=== PATIENT | female | born 1980 | race Caucasian/White ===

== ENCOUNTER 2018-08-08 07:42 | Observation (INO) | payer OTHER, SELFPAY ==
[2018-08-01 12:18] LABS: International Normalized Ratio 1.1; Prothrombin Time (Protime)PT. 13.7 SECONDS (11.7-14.9)
[2018-08-01 12:19] LABS: Partial Thromboplast Time 33.7 Seconds (24.1-36.2)
[2018-08-01 12:27] LABS: Hematocrit 39.6 % (37-47); Hemoglobin 13.4 g/dl (12.0-15.0); Mean Corp Hgb Conc 33.8 g/gl (32-36); Mean Corpuscular Hgb 30.7 pg (27.0-32.0); Mean Corpuscular Volume 90.6 fL (81-99); Mean Platelet Vol. 10.4 fl (6.2-12.0); Platelet Count 251 K/mm3 (150-450); RBC Distribution Width CV 12.4 % (11.6-14.6); RBC Distribution Width SD 40.7 fl (35.1-43.9); Red Blood Count 4.37 M/mm3 (4.2-5.4); White Blood Count 6.6 K/mm3 (4.4-11.0)
[2018-08-01 12:37] LABS: Scan Indicated on CBC? Y/N NO
[2018-08-01 12:53] LABS: Pregnancy, Serum, hCG Quali. NEGATIVE Negative (0-9 Nonpreg)
[2018-08-08] VITALS (10 sets, daily range): BP systolic 116–143; BP diastolic 75–95; PULSE 78–103; RESP 12–18; TEMP 36.6–37.9; O2SAT 95–100; BMI 28.1
[2018-08-08 06:09] LABS: Internal QC Validated? YES +Cl - CLEAR BKGD
[2018-08-08 06:10] LABS: Pregnancy, Urine Negative Negative
[2018-08-08] MEDS: Gabapentin 600 MG Tablet PO (06:39)
[2018-08-08] MEDS: Acetaminophen 500 MG Tablet 1000 MG PO ×2 (06:39→22:11)
[2018-08-08 06:45] LABS: Bedside Glucose 103 mg/dL (70-110)
[2018-08-08] MEDS: Bupivacaine 0.25% 30 ML Vial (06:49)
--- NOTE | 2018-08-08 07:30 | HYST_PTH ---
PATIENT: MOHAN LAGUNAS LOC: MS2 U#:[id number] AGE/SX: 38/F ROOM: [facility] [place] RE08/08/[address]: Dr. Cliff Solis MD : [id number] BED: 1 DIS: 08/09/2018 SPEC #: [id number] RECD: 08/08/18 11:52 STATUS: NATTY REErin #: [id number] MAXIM: 08/08/18 07:[address]: Cliff Solis DEPT: SURGICAL PATHOLOGY RECD BY: Lucy Dominique ENTERED: 08/08/18 12:18 SP TYPE: HYSTERECT OTHR DR: Dr. Toro Remy DO Tissues: A - Fallopian tube B - Fallopian tube C - Uterus, NOS Procedures: Surgery Specimen Level IV Surgery Specimen Level V HEADER OPERATION: ERAS-hysterectomy, lap assisted vaginal salpingectomy PRE-OP DIAGNOSIS: Dysmenorrhea and pelvic pain TISSUE SUBMITTED: A. Left distal tube, B. Right distal tube, C. Uterus and cervix MICROSCOPIC DIAGNOSIS A. Left distal fallopian tube: Fallopian tube including fimbrial end, no pathologic diagnosis. B. Right distal fallopian tube: Fallopian tube including fimbrial end, no pathologic diagnosis. C. Uterus, cervix and proximal portion of bilateral fallopian tubes: Cervix - chronic cystic cervicitis. Endometrium - extensive changes consistent with previous endometrial ablation. - Focal area of proliferative endometrium. Myometrium - adenomyosis. Proximal portion of bilateral fallopian tubes - hematosalpinx. SJ:joss 08/09/18 MICROSCOPIC DESCRIPTION Slides are reviewed. GROSS DESCRIPTION A - Received in fixative is one container labeled with the patient's name and designated left distal tube. The specimen consists of a fallopian tube including fimbrial end measuring 5 cm in length and 0.5 cm in diameter. Sections do not reveal any mass lesion. Chair Car Driver sections are submitted in one cassette. B - Received in fixative is one container labeled with the patient's name and designated right distal tube. The specimen consists of a fallopian tube including fimbrial end measuring 4.5 cm in length and 0.5 cm in diameter. Sections do not reveal any mass lesion. Chair Car Driver sections are submitted in one cassette. A metallic Filshie clip is also noted in the container which appears intact. C - Received in fixative is one container labeled with the patient's name and designated uterus and cervix. The specimen consists of a hysterectomy specimen consisting of uterus with cervix and attached proximal portion of bilateral fallopian tubes weighing 98 gm and measuring 8 x 6 x 4 cm. A central depression is noted at the fundus. The proximal portion of right fallopian tube measures 1.5 cm in length and 0.8 cm in diameter and proximal portion of left fallopian tube measures 2 cm in length and 0.7 cm in diameter. A Filshie clip is also noted at the end of the left fallopian tube. The serosal surface is mckeon, glistening. The ectocervical mucosa is unremarkable. The external os is oval and patulous in contour. The endocervical canal measures 2.5 cm in length and the endocervical mucosa is mckeon, glistening and unremarkable. The endometrial cavity is markedly narrow and shows fibrosis and measures 3 cm in length and 0.8 cm in width. The fundic portion of the uterine cavity shows two cysts filled with bloody fluid. The endometrium measures up to 0.1 cm in thickness. The cysts measure 1.5 to 2 cm in greatest dimension. Sections of the myometrial wall do not reveal any mass lesion. The uterine wall measures up to 2 cm in thickness. Sections of the proximal portion of the right fallopian tube do not reveal any mass lesion. The lumen is pinpoint and filled with bloody fluid. Sections of the proximal portion of the left fallopian tube also reveal dilated lumen up to 0.5 cm in diameter and filled with bloody fluid. Chair Car Driver sections are submitted in 11 cassettes as follows: 1 - anterior cervix, 2 - posterior cervix, 3 & 4 - anterior uterine wall, 5 & 6 - posterior uterine wall, 7 - cystic portion of endomyometrial cavity, anterior uterine wall, 8 & 9 - cystic portion of endomyometrial cavity, posterior uterine wall, 10 - proximal portion of right fallopian tube, entirely submitted, 11 - proximal portion of left fallopian tube, entirely submitted. / JEANETTE:joss 08/08/18 TC:5 CPT: 30467, 62550 x2
--- NOTE | 2018-08-08 07:52 | DCINST_ITS ---
Discharge Diet: No Restrictions Discharge Activity: Return to Normal Activity, May Not Drive, May not drive while taking narcotic pain medications., May Shower Return to work on:: 09/07/18 May shower in (days): 0 May resume sexual activity in: 6 weeks Call your doctor if your incision/area has: Sudden Increased Bleeding, Increased Pain/ Swelling, Increased Redness, Foul Smelling Discharge, Swelling at the incision site Call your doctor if you observe: Fever of 101 or Higher, Inability to urinate, Inability to have a bowel movement, Using more than one pad per hour, Shortness of breath, Chest pain, Calf discomfort, Uncontrolled pain Remove Dressing in (days):: 2 Cleanse incision/area with: Soap & Water Allergies/Adverse Reactions: Allergies Sulfa (Sulfonamide Antibiotics) Allergy (Verified 08/08/18 06:17) Shortness of breath acetaminophen [From Darvocet-N] Adverse Reaction (Verified 08/08/18 06:17) Itching hydrocodone [From [place]] Adverse Reaction (Verified 08/08/18 06:17) Nausea oxycodone [From Percocet] Adverse Reaction (Verified 08/08/18 06:17) Nausea/Vom/Diarrhea propoxyphene [From Darvocet-N] Adverse Reaction (Verified 08/08/18 06:17) Itching Medications to take at Discharge Esomeprazole Mag Trihydrate [Nexium] 20 mg PO DAILY 07/31/18 Ibuprofen 600 mg PO 4X/DAY #30 tab 08/08/18 Oxycodone [Oxyir] 5 mg PO Q4H PRN PRN 7 Days #20 tab 08/08/18 The following prescriptions were given: Oxycodone [Oxyir] 5 mg PO Q4H PRN PRN 7 Days #20 tab PRN Reason: Pain Ibuprofen 600 mg PO 4X/DAY #30 tab Primary Care Physician: Toro Remy [Primary Care Provider] - Test Results: Test results from this visit will be discussed in further detail at your follow- up appointment, if applicable. Please Follow Up With: Cliff Solis MD When: one week Proposed Discharge Date: 08/09/18
--- NOTE | 2018-08-08 07:56 | OP.PCM_ITS ---
Report of Operation Date of Procedure: 08/08/18 Pre-Operative Diagnosis: Dysmenorrhea, Pelvic Pain, Post Endometrial Ablation Syndrome Post-Operative Diagnosis: Same Surgery/Procedure Performed:: LAVH, Bilateral Salpingectomy Description of Surgical Findings:: Normal appearing uterus, ovaries, and cervix. Both fallopian tubes s/p Filshie clip occlusion with right clip located in anterior cul de sac. Normal appearing liver, stomach, and gallbladder. surface to air weapons officer: Katia Leigh Type of Anesthesia:: General Anesthesiologist: Jayden Grady Special Medications: none Specimen's removed: Uterus, cervix, and fallopian tubes Drains: Zamudio Estimated Blood Loss (mL): 50cc Fluids Replaced: 1000cc LR Description of Procedure: Leora was taken to the OR with IV running. She was given two grams of Cefotetan IV prior to the procedure. SCDs were in place throughout the case. General anesthesia was introduced without complication. She was prepped and draped in the dorsal lithotomy position. A zamudio catheter was placed. A Zumi uterine manipulator was placed. Attention was then directed to the abdomen., A 5mm vertical incision was made in the lower base of the umbilicus. The underlying subcutaneous tissue was dissected down to the level of the fascia using blunt dissection with a Laura clamp. The abdominal wall was then elevated and a Veress needle was placed through the umbilical defect into the abdomen. The abdomen was then inflated with CO2 gas to 15 Torr. The Veress needle was removed and replaced with a 5mm laparoscopic trocar and sleeve. The trocar was removed and replaced with a laparoscope. Findings were as mentioned above. All dissections were performed with the ligasure device. Attention was first directed to the left fallopian tube which was grasped at the fimbriated end, elevated and the mesosalpinx was dissected close to the tube from the fimbriated end to the cornua of the uterus. The left uteroovarian ligament was then cauterized and cut. The left round ligament was then cauterized and cut. The broad ligament was then dissected down tot he level of the cervicouterine juction close to the uterus. The anterior and posterior leaves were then bluntly. The left uterine artery was cauterized and cut. The vesicouterine peritoneum was then undermined bluntly and a bladder falp was created. The paracervical tissue on the left was dissected close to the cervix to the level of the uterosacral ligaments. The same dissection was performed on the right side. Hemostasis was excellent in the pelvis. Gas was evacuated from the abdomen and attention was directed to the vagina. The uterine manipulator was removed. The cervix was then grasped with two single toothed tenacula for traction. The cervicovaginal epithelium was then injected superficially with a dilute pitressin solution. The Bovie cautery was then used to circumfrentially cut the vaginal mucosa at the cervicovaginal junction. The vaginal mucosa was pushed superiorly. The vesicovaginal peritoneum was then identified and entered sharply. The rectovaginal peritoneum was entered sharply. A long weighted speculum was placed through the posterior vaginal defect. The uterosacral ligaments on each side were grasped with Napoleon clamps cut and suture ligated. These ties were held for future incorporation in the vaginal cuff angles. The remaining paracervical tissue was grasped with Napoleon clamps cut and suture ligated. The specimen was then removed. The vaginal cuff angles were then closed with 0- Vicryl sutures and the previously held uterosacral ligament ties were incorporated into these ties on the respective sides. The vaginal cuff was then closed with a series of interrupted sutures of 0-Vicryl. Attention was then directed to the abdomen which was reinflated with CO2 gas. All pedicles were inspected and found to be hemostatic. The lateral ports were removed under direct visualization with the laparoscope. Gas was evacuated from the abdomen and the umbilical port was removed. The skin incisions were closed with 4-0 Monocryl suture. The skin incision sites were injected with 0.25% Marcaine. Sponge, lap, instrument, and needle counts were correct. She was reversed from anesthesia and taken to the recovery room in stable condition. Grafts/Implants Used: none - Complications none - Admit VTE Documentation VTE Present on Admission: No VTE Mechan Device Prophylaxis: SCD's VTE Pharm Prophylaxis ordered?: No
[2018-08-08] MEDS: Lidocaine/D5W 2,000 MG/250 ML IV.SOLN 2000 MG ×2 (08:05)
[2018-08-08] MEDS: Ketorolac 30 MG/ML Syringe IV ×3 (09:03→20:53)
[2018-08-08] MEDS: Dextrose 5%-Lactated Ringers 1,000 ML 125 ML IV ×2 (13:21→21:40)
[2018-08-08] MEDS: traMADol 50 MG Tablet 100 MG PO ×2 (13:30→23:29)
[2018-08-08] MEDS: Cefazolin 1 GM/50 ML BAG IV ×2 (15:28→23:29)
[2018-08-08] MEDS: Acetaminophen/Butalbital/Caffe 1 Tablet 2 TABLET PO (18:38)
[2018-08-09 03:15] VITALS: BP 108/62; PULSE 77; RESP 14; TEMP 37.2; O2SAT 97
[2018-08-09] MEDS: Ketorolac 30 MG/ML Syringe IV (03:19)
[2018-08-09 06:14] LABS: Hematocrit 36.1 % (37-47); Hemoglobin 12.1 g/dl (12.0-15.0); Mean Corp Hgb Conc 33.5 g/gl (32-36); Mean Corpuscular Hgb 30.6 pg (27.0-32.0); Mean Corpuscular Volume 91.4 fL (81-99); Mean Platelet Vol. 10.4 fl (6.2-12.0); Platelet Count 267 K/mm3 (150-450); RBC Distribution Width CV 12.3 % (11.6-14.6); RBC Distribution Width SD 40.2 fl (35.1-43.9); Red Blood Count 3.95 M/mm3 (4.2-5.4); White Blood Count 11.9 K/mm3 (4.4-11.0)
[2018-08-09 06:36] LABS: Scan Indicated on CBC? Y/N NO
[2018-08-09] MEDS: traMADol 50 MG Tablet 100 MG PO (07:13)
--- NOTE | 2018-08-09 07:54 | PCM.PN.OB ---
Subjective: Some abdominal soreness. Voiding, tolerating PO. Scant vaginal spotting. Objective: Afeb VSS Hgb appropriate. - Physical Exam General: Alert, Oriented x3, Cooperative, No apparent distress Lungs: Clear to auscultation, Normal air movement Cardiovascular: Regular rate, Regular Rhythm Abdomen: Soft, Non Tender, Non-Distended, - - Incision dressings dry, no erythema Extremities: No edema Skin: No rashes Neurological: Neuro grossly intact Psych/Mental Status: Normal Affect Vital Signs Temp Pulse Resp BP Pulse Ox 99.0 F 77 14 108/62 97 08/09/18 03:15 08/09/18 03:15 08/09/18 03:15 08/09/18 03:15 08/09/18 03:15 Oxygen Flow Rate (L/min) 6 Oxygen Delivery Method Room Air Weight: 169 lb 1.513 oz Body Mass Index (BMI) 28.1 Intake and Output for Last 24 Hours 08/07/18 08/08/18 08/09/18 23:59 23:59 23:59 Intake Total 2693 / 2693 1324 / 1324 Output Total 2290 / 2290 500 / 500 Balance 403 / 403 824 / 824 Laboratory Tests Past 24 Hrs 08/09/18 05:10 WBC 11.9 H RBC 3.95 L Hgb 12.1 Hct 36.1 L MCV 91.4 MCH 30.6 MCHC 33.5 RDW 12.3 RDW Differential 40.2 Plt Count 267 MPV 10.4 Medical Necessity - Tobacco Use Smoking Status: Former smoker Tobacco Use: Non-smoker Assessment/Plan Doing well on POD#1 s/p LAVH and bilateral salpingectomy. Cleared for discharge home today. Home going instructions and warnings given.
--- NOTE | 2018-08-09 07:56 | PCM.DC.SUM ---
Discharge Date and Diagnosis Date of Admission: 08/08/18 Date of Discharge: 08/09/18 - Primary Discharge Diagnosis S/P LAVH, bilateral salpingectomy Hospital Course and Treatment Operations: - - LAVH, bilateral salpingectomy Summary of Care Provided: The patient is a 38 year old F [admitted for LAVH bilateral salpingectomy. Surgery performed without complication. Discharged home on POD #1.] - Physical Exam Vital Signs Temp Pulse Resp BP Pulse Ox 99.0 F 77 14 108/62 97 08/09/18 03:15 08/09/18 03:15 08/09/18 03:15 08/09/18 03:15 08/09/18 03:15 Oxygen Flow Rate (L/min) 6 Oxygen Delivery Method Room Air Weight: 169 lb 1.513 oz Body Mass Index (BMI) 28.1 Intake and Output for Last 24 Hours 08/07/18 08/08/18 08/09/18 23:59 23:59 23:59 Intake Total 2693 / 2693 1324 / 1324 Output Total 2290 / 2290 500 / 500 Balance 403 / 403 824 / 824 Laboratory Tests Past 24 Hrs 08/09/18 05:10 WBC 11.9 H RBC 3.95 L Hgb 12.1 Hct 36.1 L MCV 91.4 MCH 30.6 MCHC 33.5 RDW 12.3 RDW Differential 40.2 Plt Count 267 MPV 10.4 Discharge Diet: No Restrictions Discharge Activity: Return to Normal Activity, May Not Drive, May not drive while taking narcotic pain medications., May Shower Return to work on:: 09/07/18 May shower in (days): 0 May resume sexual activity in: 6 weeks Call your doctor if your incision/area has: Sudden Increased Bleeding, Increased Pain/ Swelling, Increased Redness, Foul Smelling Discharge, Swelling at the incision site Call your doctor if you observe: Fever of 101 or Higher, Inability to urinate, Inability to have a bowel movement, Using more than one pad per hour, Shortness of breath, Chest pain, Calf discomfort, Uncontrolled pain Remove Dressing in (days):: 2 Cleanse incision/area with: Soap & Water Home Medications: Medications to take at Discharge Esomeprazole Mag Trihydrate [Nexium] 20 mg PO DAILY 07/31/18 Ibuprofen 600 mg PO 4X/DAY #30 tab 08/08/18 Oxycodone [Oxyir] 5 mg PO Q4H PRN PRN 7 Days #20 tab 08/08/18 traMADol [Ultram] 50 mg PO Q4H PRN PRN 7 Days #28 tab 08/08/18 Following Prescrptions Were Given to Patient: Oxycodone [Oxyir] 5 mg PO Q4H PRN PRN 7 Days #20 tab PRN Reason: Pain traMADol [Ultram] 50 mg PO Q4H PRN PRN 7 Days #28 tab PRN Reason: Moderate Pain (4-5/10) Ibuprofen 600 mg PO 4X/DAY #30 tab Primary Care Physician: Toro Remy [Primary Care Provider] - Please Follow Up With: Cliff Solis MD When: one week Disposition: Home Minutes spent on discharge:: 15 Patient Condition:: Good Medical Necessity - Tobacco Use Smoking Status: Former smoker Tobacco Use: Non-smoker Meaningful Use Info Meaningful Use Diagnoses (Choose all that apply): None applicable
[2018-08-09 08:50] VITALS: BP 135/89; PULSE 84; RESP 18; TEMP 37.7; O2SAT 97
--- OUTSIDE RECORDS SUMMARY | 2018-10-03 11:08 | XMS RPT_ITS ---
:1980 Author Organization [facility] Care Team Providers Name Role Phone Cliff Solis Attending Unavailable Seals, Cliff Referring Unavailable TORO REMY Primary Care Unavailable Seals, Cliff Admitting Unavailable Seals, Cliff Attending Unavailable PROBLEMS PROBLEMS DATE TYPE CONDITION / CODE ATTENDING STATUS SOURCE 08/15/2018 Unknown R30.0 - Dysuria / SealsCliff Active [place] R30.0(ICD-10) [facility]ly [facility] Hospital Repository 08/09/2018 Unknown G89.18 - Other acute SealsCliff Active [place] postprocedural pain [facility]ly [facility] / G89.18(ICD-10) Hospital Repository PROCEDURES PROCEDURES No Procedure Records FoundRESULTS RESULTS Observed: 08/15/2018 Status: F Source: BRACEY CULTURE, URINE 10:10 AM [facility] REPOSITORY Urine Culture Below infection level. ORGANISM 1: Presumptive E. coli Trosper Count <1000 Performed By: #### M100.0650 #### [facility] [address] [place] [address]. [place], [address] DISCHARGE SUMMARY Observed: 08/09/2018 Status: F Source: RONNIE 7:58 AM [facility] REPOSITORY [facility] Medical Records Department [address] [place] [address] Discharge Summary 08/09/18 0756 MR#: [id number] Acct: [id number] Name: LEORA LAGUNAS Rep #: [id number] : 1980 38 From: Cliff Solis MD PCP: BONIFACIO Ryan Status: ADM DAVID Y Location: [place] [address] Discharge Date and Diagnosis Date of Admission: 08/08/18 Date of Discharge: 08/09/18 - Primary Discharge Diagnosis S/P LAVH, bilateral salpingectomy Hospital Course and Treatment Operations: - - LAVH, bilateral salpingectomy Summary of Care Provided: The patient is a 38 year old F [admitted for LAVH bilateral salpingectomy. Surgery performed without complication. Discharged home on POD #1.] - Physical Exam Vital Signs Temp Pulse Resp BP Pulse Ox 99.0 F 77 14 108/62 97 08/09/18 03:15 08/09/18 03:15 08/09/18 03:15 08/09/18 03:15 08/09/18 03:15 Oxygen Flow Rate (L/min) 6 Oxygen Delivery Method Room Air Weight: 169 lb 1.513 oz Body Mass Index (BMI) 28.1 Intake and Output for Last 24 Hours Intake Total 2693 / 2693 1324 / 1324 Output Total 2290 / 2290 500 / 500 Balance 403 / 403 824 / 824 Laboratory Tests Past 24 Hrs WBC 11.9 H RBC 3.95 L Hgb 12.1 Hct 36.1 L MCV 91.4 MCH 30.6 MCHC 33.5 RDW 12.3 RDW Differential 40.2 Plt Count 267 MPV 10.4 Discharge Diet: No Restrictions Discharge Activity: Return to Normal Activity, May Not Drive, May not drive while taking narcotic pain medications., May Shower Return to work on:: 09/07/18 May shower in (days): 0 May resume sexual activity in: 6 weeks Call your doctor if your incision/area has: Sudden Increased Bleeding, Increased Pain/ Swelling, Increased Redness, Foul Smelling Discharge, Swelling at the incision site Call your doctor if you observe: Fever of 101 or Higher, Inability to urinate, Inability to have a bowel movement, Using more than one pad per hour, Shortness of breath, Chest pain, Calf discomfort, Uncontrolled pain Remove Dressing in (days):: 2 Cleanse incision/area with: Soap AND Water Home Medications: Medications to take at Discharge Esomeprazole Mag Trihydrate [Nexium] 20 mg PO DAILY 07/31/18 Ibuprofen 600 mg PO 4X/DAY #30 tab 08/08/18 Oxycodone [Oxyir] 5 mg PO Q4H PRN PRN 7 Days #20 tab 08/08/18 traMADol [Ultram] 50 mg PO Q4H PRN PRN 7 Days #28 tab 08/08/18 Following Prescrptions Were Given to Patient: Oxycodone [Oxyir] 5 mg PO Q4H PRN PRN 7 Days #20 tab PRN Reason: Pain traMADol [Ultram] 50 mg PO Q4H PRN PRN 7 Days #28 tab PRN Reason: Moderate Pain (4-5/10) Ibuprofen 600 mg PO 4X/DAY #30 tab Primary Care Physician: Toro Remy [Primary Care Provider] - Please Follow Up With: Cliff Solis MD When: one week Disposition: Home Minutes spent on discharge:: 15 Patient Condition:: Good Medical Necessity - Tobacco Use Smoking Status: Former smoker Tobacco Use: Non-smoker Meaningful Use Info Meaningful Use Diagnoses (Choose all that apply): None applicable 08/09/18 0758 <Electronically signed by Cliff Solis MD> Date Cliff Solis MD Cosigner Signature (if applicable): Date CC: BONIFACIO Remy; Cliff Solis MD Signed CBC-COMPLETE BLOOD CNT Collected: 08/09/2018 Status: F Source: RONNIE NO DIFF 5:10 AM [facility] REPOSITORY TYPE CODE TESTS RESULT OUT OF RANGE REFERENCE UNITS LAB L100.1000 4.4-11.0 K/mm3 High WBC 11.9 LAB L100.1200 4.2-5.4 M/mm3 Low RBC 3.95 LAB L100.1300 12.0-15.0 g/dl Normal HGB 12.1 LAB L100.1400 37-47 % Low HCT 36.1 LAB L100.1500 81-99 fL Normal MCV 91.4 LAB L100.1600 27.0-32.0 pg Normal MCH 30.6 LAB L100.1700 32-36 g/gl Normal MCHC 33.5 LAB L100.1810 11.6-14.6 % Normal RDW CV 12.3 LAB L100.1820 35.1-43.9 fl Normal RDW SD 40.2 LAB L100.1900 150-450 K/mm3 Normal PLT 267 LAB L100.2000 6.2-12.0 fl Normal MPV 10.4 Performed By: #### L100.0500 #### [facility] [address] [facility] [place], [address] OPERATIVE REPORT Observed: 08/08/2018 Status: F Source: BRACEY 5:13 PM [facility] REPOSITORY [facility] Medical Records Department [address] [place] [address] Operative Report 08/08/18 0752 MR#: [id number] Acct: [id number] Name: LEORA LAGUNAS Rep #: [id number] : 1980 38 From: Cliff Solis MD PCP: BONIFACIO Ryan Status: ADM DAVID Y Location: [place] [address] Report of Operation Date of Procedure: 08/08/18 Pre-Operative Diagnosis: Dysmenorrhea, Pelvic Pain, Post Endometrial Ablation Syndrome Post-Operative Diagnosis: Same Surgery/Procedure Performed:: LAVH, Bilateral Salpingectomy Description of Surgical Findings:: Normal appearing uterus, ovaries, and cervix. Both fallopian tubes s/p Filshie clip occlusion with right clip located in anterior cul de sac. Normal appearing liver, stomach, and gallbladder. computer engineering professor: Katia Leigh Type of Anesthesia:: General Anesthesiologist: Jayden Grady Special Medications: none Specimen's removed: Uterus, cervix, and fallopian tubes Drains: Zamudio Estimated Blood Loss (mL): 50cc Fluids Replaced: 1000cc LR Description of Procedure: Leora was taken to the OR with IV running. She was given two grams of Cefotetan IV prior to the procedure. SCDs were in place throughout the case. General anesthesia was introduced without complication. She was prepped and draped in the dorsal lithotomy position. A zamudio catheter was placed. A Zumi uterine manipulator was placed. Attention was then directed to the abdomen., A 5mm vertical incision was made in the lower base of the umbilicus. The underlying subcutaneous tissue was dissected down to the level of the fascia using blunt dissection with a Laura clamp. The abdominal wall was then elevated and a Veress needle was placed through the umbilical defect into the abdomen. The abdomen was then inflated with CO2 gas to 15 Torr. The Veress needle was removed and replaced with a 5mm laparoscopic trocar and sleeve. The trocar was removed and replaced with a laparoscope. Findings were as mentioned above. All dissections were performed with the ligasure device. Attention was first directed to the left fallopian tube which was grasped at the fimbriated end, elevated and the mesosalpinx was dissected close to the tube from the fimbriated end to the cornua of the uterus. The left uteroovarian ligament was then cauterized and cut. The left round ligament was then cauterized and cut. The broad ligament was then dissected down tot he level of the cervicouterine juction close to the uterus. The anterior and posterior leaves were then bluntly. The left uterine artery was cauterized and cut. The vesicouterine peritoneum was then undermined bluntly and a bladder falp was created. The paracervical tissue on the left was dissected close to the cervix to the level of the uterosacral ligaments. The same dissection was performed on the right side. Hemostasis was excellent in the pelvis. Gas was evacuated from the abdomen and attention was directed to the vagina. The uterine manipulator was removed. The cervix was then grasped with two single toothed tenacula for traction. The cervicovaginal epithelium was then injected superficially with a dilute pitressin solution. The Bovie cautery was then used to circumfrentially cut the vaginal mucosa at the cervicovaginal junction. The vaginal mucosa was pushed superiorly. The vesicovaginal peritoneum was then identified and entered sharply. The rectovaginal peritoneum was entered sharply. A long weighted speculum was placed through the posterior vaginal defect. The uterosacral ligaments on each side were grasped with Napoleon clamps cut and suture ligated. These ties were held for future incorporation in the vaginal cuff angles. The remaining paracervical tissue was grasped with Napoleon clamps cut and suture ligated. The specimen was then removed. The vaginal cuff angles were then closed with 0- Vicryl sutures and the previously held uterosacral ligament ties were incorporated into these ties on the respective sides. The vaginal cuff was then closed with a series of interrupted sutures of 0-Vicryl. Attention was then directed to the abdomen which was reinflated with CO2 gas. All pedicles were inspected and found to be hemostatic. The lateral ports were removed under direct visualization with the laparoscope. Gas was evacuated from the abdomen and the umbilical port was removed. The skin incisions were closed with 4-0 Monocryl suture. The skin incision sites were injected with 0.25% Marcaine. Sponge, lap, instrument, and needle counts were correct. She was reversed from anesthesia and taken to the recovery room in stable condition. Grafts/Implants Used: none - Complications none - Admit VTE Documentation VTE Present on Admission: No VTE Mechan Device Prophylaxis: SCD's VTE Pharm Prophylaxis ordered?: No 08/08/18 1713 <Electronically signed by Cliff Solis MD> Date Cliff Solis MD CC: BONIFACIO Remy; Cliff Solis MD Signed DISCHARGE INSTRUCTION Observed: 08/08/2018 Status: F Source: BRACEY 7:52 AM [facility] REPOSITORY [facility] Medical Records Department [address] [place] [address] Instructions for Home/Discharge Instructions 08/08/18 0751 MR#: [id number] Acct: [id number] Name: LEORA LAGUNAS Rep #: [id number] : 1980 38 From: Cliff Solis MD PCP: BONIFACIO Ryan Status: REG SDC Discharge Diet: No Restrictions Discharge Activity: Return to Normal Activity, May Not Drive, May not drive while taking narcotic pain medications., May Shower Return to work on:: 09/07/18 May shower in (days): 0 May resume sexual activity in: 6 weeks Call your doctor if your incision/area has: Sudden Increased Bleeding, Increased Pain/ Swelling, Increased Redness, Foul Smelling Discharge, Swelling at the incision site Call your doctor if you observe: Fever of 101 or Higher, Inability to urinate, Inability to have a bowel movement, Using more than one pad per hour, Shortness of breath, Chest pain, Calf discomfort, Uncontrolled pain Remove Dressing in (days):: 2 Cleanse incision/area with: Soap AND Water Allergies/Adverse Reactions: Allergies Sulfa (Sulfonamide Antibiotics) Allergy (Verified 08/08/18 06:17) Shortness of breath acetaminophen [From Darvocet-N] Adverse Reaction (Verified 08/08/18 06:17) Itching hydrocodone [From [place]] Adverse Reaction (Verified 08/08/18 06:17) Nausea oxycodone [From Percocet] Adverse Reaction (Verified 08/08/18 06:17) Nausea/Vom/Diarrhea propoxyphene [From Darvocet-N] Adverse Reaction (Verified 08/08/18 06:17) Itching Medications to take at Discharge Esomeprazole Mag Trihydrate [Nexium] 20 mg PO DAILY 07/31/18 Ibuprofen 600 mg PO 4X/DAY #30 tab 08/08/18 Oxycodone [Oxyir] 5 mg PO Q4H PRN PRN 7 Days #20 tab 08/08/18 The following prescriptions were given: Oxycodone [Oxyir] 5 mg PO Q4H PRN PRN 7 Days #20 tab PRN Reason: Pain Ibuprofen 600 mg PO 4X/DAY #30 tab Primary Care Physician: Toro Remy [Primary Care Provider] - Test Results: Test results from this visit will be discussed in further detail at your follow-up appointment, if applicable. Please Follow Up With: Cliff Solis MD When: one week Proposed Discharge Date: 08/09/18 08/08/18 0752 <Electronically signed by Cliff Solis MD> Date Cliff Solis MD CC: BONIFACIO Remy HYSTERECTOMY SPECIMEN Observed: 08/08/2018 Status: F Source: RONNIE 7:30 AM [facility] REPOSITORY Patient: LEORA LAGUNAS : 1980 (38/F) Acct Num: [id number] Phys: Cliff Solis MD Unit Num: [id number] Loc: MS2 [id number] Specimen: [id number] Received: 08/08/18 - 1152 Spec Type: HYSTERECT TISSUES 1 TISSUES: A. Fallopian tube - LEFT B. Fallopian tube - RIGHT C. Uterus, NOS GROSS DESCRIPTION A - Received in fixative is one container labeled with the patient's name and designated left distal tube. The specimen consists of a fallopian tube including fimbrial end measuring 5 cm in length and 0.5 cm in diameter. Sections do not reveal any mass lesion. Javascript Engineer sections are submitted in one cassette. B - Received in fixative is one container labeled with the patient's name and designated right distal tube. The specimen consists of a fallopian tube including fimbrial end measuring 4.5 cm in length and 0.5 cm in diameter. Sections do not reveal any mass lesion. Javascript Engineer sections are submitted in one cassette. A metallic Filshie clip is also noted in the container which appears intact. C - Received in fixative is one container labeled with the patient's name and designated uterus and cervix. The specimen consists of a hysterectomy specimen consisting of uterus with cervix and attached proximal portion of bilateral fallopian tubes weighing 98 gm and measuring 8 x 6 x 4 cm. A central depression is noted at the fundus. The proximal portion of right fallopian tube measures 1.5 cm in length and 0.8 cm in diameter and proximal portion of left fallopian tube measures 2 cm in length and 0.7 cm in diameter. A Filshie clip is also noted at the end of the left fallopian tube. The serosal surface is mckeon , glistening. The ectocervical mucosa is unremarkable. The external os is oval and patulous in contour. The endocervical canal measures 2.5 cm in length and the endocervical mucosa is mckeon, glistening and unremarkable. The endometrial cavity is markedly narrow and shows fibrosis and measures 3 cm in length and 0.8 cm in width. The fundic portion of the uterine cavity shows two cysts filled with bloody fluid. The endometrium measures up to 0.1 cm in thickness. The cysts measure 1.5 to 2 cm in greatest dimension. Sections of the myometrial wall do not reveal any mass lesion. The uterine wall measures up to 2 cm in thickness. Sections of the proximal portion of the right fallopian tube do not reveal any mass lesion. The lumen is pinpoint and filled with bloody fluid. Sections of the proximal portion of the left fallopian tube also reveal dilated lumen up to 0.5 cm in diameter and filled with bloody fluid. Javascript Engineer sections are submitted in 11 cassettes as follows: 1 - anterior cervix, 2 - posterior cervix, 3 AND 4 - anterior uterine wall, 5 AND 6 - posterior uterine wall, 7 - cystic portion of endomyometrial cavity, anterior uterine wall, 8 AND 9 - cystic portion of endomyometrial cavity, posterior uterine wall, 10 - proximal portion of right fallopian tube, entirely submitted, 11 - proximal portion of left fallopian tube, entirely submitted. / SJ:joss 08/08/18 TC:5 CPT: 77782, 28421 x2 HEADER OPERATION: ERAS-hysterectomy, lap assisted vaginal salpingectomy PRE-OP DIAGNOSIS: Dysmenorrhea and pelvic pain TISSUE SUBMITTED: A. Left distal tube, B. Right distal tube, C. Uterus and cervix MICROSCOPIC DESCRIPTION Slides are reviewed. MICROSCOPIC DIAGNOSIS A. Left distal fallopian tube: Fallopian tube including fimbrial end, no pathologic diagnosis. B. Right distal fallopian tube: Fallopian tube including fimbrial end, no pathologic diagnosis. C. Uterus, cervix and proximal portion of bilateral fallopian tubes: Cervix - chronic cystic cervicitis. Endometrium - extensive changes consistent with previous endometrial ablation. - Focal area of proliferative endometrium. Myometrium - adenomyosis. Proximal portion of bilateral fallopian tubes - hematosalpinx. SJ:joss 08/09/18 Signed Carlos Manuel Braun 08/09/18 <signature on file> Performed By: #### PHYST #### [facility] [address] [place], [place], [address] BEDSIDE GLUCOSE Collected: 08/08/2018 Status: F Source: BRACEY 6:28 AM [facility] REPOSITORY TYPE CODE TESTS RESULT OUT OF RANGE REFERENCE UNITS LAB L501.080 70-110 mg/dL Normal BEDSIDE GLU 103 Result Comment: MANAGEMENT OF PATIENT CARE PER NURSING PROTOCOL Performed By: #### L501.080 #### [facility] Point of Care [address] [place] [address] ,URINE Collected: 08/08/2018 Status: F Source: RONNIE 6:00 AM [facility] REPOSITORY TYPE CODE TESTS RESULT OUT OF REFERENCE UNITS RANGE LAB L400.8000 Negative Normal HCGUQUAL Negative Result Comment: Very dilute urine specimens, as indicated by a low specific gravity, may not contain product representative levels of hCG. If is still suspected, a first morning urine specimen should be collected 48 hours later and tested. Performed By: #### L400.7600 #### [facility] [address] [place], [address] PROTHROMBIN TIME W/INR Collected: 08/01/2018 Status: F Source: RONNIE 11:33 AM [facility] REPOSITORY TYPE CODE TESTS RESULT OUT OF RANGE REFERENCE UNITS LAB L300.4150 11.7-14.9 SECONDS Normal PROTIME 13.7 LAB L300.4200 Normal INR 1.1 Performed By: #### L300.3900, L300.4310 #### [facility] [address] [place], [address] PARTIAL THROMBOPLAST Collected: 08/01/2018 Status: F Source: RONNIE TIME 11:33 AM [facility] REPOSITORY TYPE CODE TESTS RESULT OUT OF RANGE REFERENCE UNITS LAB L300.4310 24.1-36.2 Seconds Normal PTT 33.7 Performed By: #### L300.3900, L300.4310 #### [facility] [address] [place], [address] CBC-COMPLETE BLOOD CNT Collected: 08/01/2018 Status: F Source: RONNIE NO DIFF 11:33 AM [facility] REPOSITORY TYPE CODE TESTS RESULT OUT OF RANGE REFERENCE UNITS LAB L100.1000 4.4-11.0 K/mm3 Normal WBC 6.6 LAB L100.1200 4.2-5.4 M/mm3 Normal RBC 4.37 LAB L100.1300 12.0-15.0 g/dl Normal HGB 13.4 LAB L100.1400 37-47 % Normal HCT 39.6 LAB L100.1500 81-99 fL Normal MCV 90.6 LAB L100.1600 27.0-32.0 pg Normal MCH 30.7 LAB L100.1700 32-36 g/gl Normal MCHC 33.8 LAB L100.1810 11.6-14.6 % Normal RDW CV 12.4 LAB L100.1820 35.1-43.9 fl Normal RDW SD 40.7 LAB L100.1900 150-450 K/mm3 Normal PLT 251 LAB L100.2000 6.2-12.0 fl Normal MPV 10.4 Performed By: #### L100.0500 #### [facility] [address] [place], [address] ,SERUM,HCG QUALI. Collected: Status: F Source: BRACEY 08/01/2018 11:33 AM [facility] REPOSITORY TYPE CODE TESTS RESULT OUT OF REFERENCE UNITS RANGE LAB L700.6700 =>Qualitative mIU/mL Normal HCG Qual < 1 triggr LAB L700.7000 0-9 Nonpreg Negative Normal HCGSQUAL NEGATIVE Performed By: #### L700.6800 #### [facility] [address] [facility] [place], [address] TYPE AND SCREEN Collected: 08/01/2018 Status: F Source: BRACEY 11:33 AM [facility] REPOSITORY Order Comment: Surgery Date: 08/08/18 Hx of Preganancy in last 3 Months No Ever experience any problems with transfusion(s)? N Hx of Transfusion in last 3 Months N Reason for Type AND Screen/Red Cells: SURGERY SURGICAL PROCEDURE: LAVH TYPE CODE TESTS RESULT OUT OF RANGE REFERENCE UNITS LAB B10.0800 O Normal BLOOD TYPE GEL POSITIVE LAB B100.4000 Normal Antibody NEGATIVE Screen Performed By: #### B101.7475 #### [facility] [address] [facility] [place], [address] ALLERGIES ALLERGIES DATE TYPE / CODE NAME / CODE REACTION SEVERITY SOURCE 08/08/2018 Drug Sulfa Shortness of Unknown [facility] Allergy/4160 (Sulfonamide breath [facility] 14181(SNOMED Antibiotics)/ Repository CT) [id number](RX NORM) 08/08/2018 Drug hydrocodone/F Nausea Unknown [facility] Allergy/4160 [id number](RXN Hospital 78766(SNOMED ORM) Repository CT) 08/08/2018 Drug oxycodone/F00 Nausea/Vom/Diarr Unknown [facility] All[facility]/4160 9265102(RX[facility] 16827(SNOMED M) Repository CT) 08/08/2018 Drug propoxyphene/ Itching Unknown [facility] All[facility]/4160 [id number](RX [facility] 10429(SNOMED NORM) Repository CT) 08/08/2018 Drug acetaminophen Itching Unknown [facility] All[facility]/4160 /[id number](R [facility] 87362(SNOMED XNORM) Repository CT) ENCOUNTERS ENCOUNTERS ADMIT/DISCHARGE ACCOUNT ADMITTING ENCOUNTER LOCATION SOURCE NUMBER CLASS 08/15/2018 [id number] Ambulatory [place] 6 [facility] ing:LABSPEC Repository 08/08/2018/ [id number] [facility] [place] 8 1 [facility] ing:NS6Zhkv: Repository YX652Ntv: 1 PAYERS PAYERS ENCOUNTER GUARANTOR PAYER SUBSCRIBER SOURCE 08/15/2018 LEORA Alas Primary KUNAL [place] [id number] N Insurance:MEDICAL DUDICHDOB: [facility] [id number] Number: Repository [address]Epf: 330 [id number] [phone] () Date:[id number] [address]VK: 08/15/2018 Secondary NOT GIVENUNK [place] Insurance:SELF PAY [facility] Number: Effective Repository Date:2018-08-15 08/08/2018 LEORA Alas Primary KUNAL [place] [id number] N Insurance:MEDICAL DUDICHDOB: [facility] [id number] Number: Repository [id number]: 330 [id number] [phone] () Date:[id number] [address] [address]ZS: 08/08/2018 Secondary NOT GIVENUNK [place] Insurance:SELF PAY [facility] Number: Effective Repository Date:2018-06-22
== END 2018-08-09 09:14 | disposition home or self-care (01) ==
LOC: MS2 08:21 → SDC 08:21
PROVIDERS: Anesthesiology; Admitting Provider Obstetrics & Gynecology; Family Provider Family Medicine; PCP Family Medicine; Referring Provider Obstetrics & Gynecology; Visit Provider Obstetrics & Gynecology
PROC: 0UT9FZZ Resection of Uterus, Via Natural or Artificial Opening With Percutaneous Endoscopic Assistance (ICD-10-PCS; CPT 58552; principal; 2018-08-08 07:05)
DX: N94.6 Dysmenorrhea, unspecified (principal); N80.0 Endometriosis of uterus; N72 Inflammatory disease of cervix uteri; N83.6 Hematosalpinx; Z87.891 Personal history of nicotine dependence; M19.90 Unspecified osteoarthritis, unspecified site
CPT/HCPCS: 00940; 58552; 36415; 81025; 82962; 84703; 85027; 85610; 85730; 86850; 86900; 88302; 88305; 88307; 96361; 96365; 96366; 96375; 96376; 99218; J7050; J7120; G0378; G0379; J2405

== ENCOUNTER → 2018-08-15 10:52 | Outpatient (CLI) | payer OTHER, SELFPAY ==
[2018-08-08 11:11] VITALS: BMI 28.1
== END ==
PROVIDERS: Visit Provider Obstetrics & Gynecology
DX: R30.0 Dysuria (principal)
CPT/HCPCS: 87086; 87088

== ENCOUNTER → 2018-09-18 15:46 | Outpatient (CLI) | payer OTHER, SELFPAY ==
[2018-08-08 11:11] VITALS: BMI 28.1
== END ==
PROVIDERS: Referring Provider Obstetrics & Gynecology; Visit Provider Obstetrics & Gynecology
DX: R30.0 Dysuria (principal)
CPT/HCPCS: 87086; 87088